=== PATIENT | male | born 1945 | race Caucasian/White ===

== ENCOUNTER → 2018-03-13 10:21 | Outpatient (CLI) | payer MEDICARE, OTHER, SELFPAY ==
[2018-03-13 12:35] LABS: Add Manual Diff / Slide Review NO; Basophils Percent Auto 0.5 % (0-2); Eosinophils Percent Auto 5.6 % (2-4); Hematocrit 39.1 % (41-53); Hemoglobin 13.2 g/dL (13.5-17.5); Lymphocytes Percent Auto 19.1 % (25-40); Mean Corpuscular HGB Conc 33.8 % (30-36); Mean Corpuscular Hemoglobin 32.8 PG (26-34); Mean Corpuscular Volume 96.9 fL (80-100); Monocytes Percent Auto 8.4 % (3-14); Neutrophils Absolute Auto 7600 /uL (3000-5900); Neutrophils Percent Auto 66.4 % (50-75); Platelet Count 274 X10^3/uL (150-400); Red Blood Cell Count 4.03 X10^6/uL (4.5-5.9); White Blood Cell Count 11.5 X10^3/uL (4.5-11.0)
[2018-03-13 13:34] LABS: Alanine Aminotransferase 24 IU/L (21-72); Albumin 3.8 g/dL (3.5-5.0); Albumin Globulin Ratio 1.4 (1.0-2.8); Alkaline Phosphatase 70 U/L (38-126); Aspartate Aminotransferase 24 IU/L (17-59); BUN Creatinine Ratio 11.4 (6-22); Bilirubin Total 0.6 mg/dL (0.2-1.3); Blood Urea Nitrogen 8 mg/dL (9-20); Calcium 9.2 mg/dL (8.4-10.2); Carbon Dioxide 25 mmol/L (22-32); Chloride 99 mmol/L (98-107); Estimated Glomerular Filt Rate > 60.0 mL/min (>60); Globulin 2.8 g/dL (1.7-4.1); Glucose 102 mg/dL (80-110); HEMOLYSIS < 15 (0-50); Potassium 4.5 mmol/L (3.4-5.1); Sodium 135 mmol/L (137-145); Total Protein 6.6 g/dL (6.3-8.2)
[2018-03-13 15:13] LABS: HIV 1 and 2 Antibody NEGATIVE (NEGATIVE)
[2018-03-15 13:45] LABS: Hepatitis B Surf Ab Qualitativ Nonreactive (Nonreactive)
[2018-03-15 13:52] LABS: Hepatitis B Core Antibody Nonreactive (Nonreactive)
== END ==
PROVIDERS: Visit Provider Dermatology
DX: Z51.81 Encounter for therapeutic drug level monitoring (principal); Z11.59 Encounter for screening for other viral diseases
CPT/HCPCS: 36415; 80053; 85025; 86317; 86480; 86703; 86704; 86706; 87522

== ENCOUNTER → 2018-03-14 12:53 | Outpatient (CLI) | payer MEDICARE, OTHER, SELFPAY ==
[2018-03-17 11:44] LABS: QuantiFERON TB Negative (Negative)
== END ==
PROVIDERS: Visit Provider Dermatology
DX: Z51.81 Encounter for therapeutic drug level monitoring (principal); Z11.59 Encounter for screening for other viral diseases
CPT/HCPCS: 86480

== ENCOUNTER → 2018-03-22 13:59 | Outpatient (CLI) | payer MEDICARE, OTHER, SELFPAY ==
[2018-03-22 15:36] LABS: Hepatitis B Surface Antigen NEGATIVE s/c (NEGATIVE)
[2018-03-22 15:53] LABS: Hep C Virus Ab w/Reflex Quant NEGATIVE s/c (NEGATIVE)
== END ==
PROVIDERS: Visit Provider Dermatology
DX: Z11.59 Encounter for screening for other viral diseases (principal); Z51.81 Encounter for therapeutic drug level monitoring
CPT/HCPCS: 36415; 86803; 87340

== ENCOUNTER → 2018-04-26 09:12 | Outpatient (CLI) | payer MEDICARE, OTHER, SELFPAY ==
[2018-04-26 10:00] LABS: Add Manual Diff / Slide Review NO; Basophils Percent Auto 1.1 % (0-2); Eosinophils Percent Auto 5.4 % (2-4); Hematocrit 38.9 % (41-53); Lymphocytes Percent Auto 36.3 % (25-40); Mean Corpuscular HGB Conc 33.6 % (30-36); Mean Corpuscular Hemoglobin 32.2 PG (26-34); Mean Corpuscular Volume 95.8 fL (80-100); Monocytes Percent Auto 9.7 % (3-14); Neutrophils Absolute Auto 2800 /uL (3000-5900); Neutrophils Percent Auto 47.5 % (50-75); Platelet Count 286 X10^3/uL (150-400); Red Blood Cell Count 4.06 X10^6/uL (4.5-5.9); Red Cell Distribution Width 14.3 % (11.6-14.8); White Blood Cell Count 5.9 X10^3/uL (4.5-11.0)
[2018-04-26 10:46] LABS: Alanine Aminotransferase 25 IU/L (21-72); Albumin 4.2 g/dL (3.5-5.0); Albumin Globulin Ratio 1.4 (1.0-2.8); Alkaline Phosphatase 81 U/L (38-126); Aspartate Aminotransferase 25 IU/L (17-59); Bilirubin Total 0.7 mg/dL (0.2-1.3); Blood Urea Nitrogen 9 mg/dL (9-20); Calcium 9.1 mg/dL (8.4-10.2); Carbon Dioxide 25 mmol/L (22-32); Chloride 98 mmol/L (98-107); Estimated Glomerular Filt Rate > 60.0 mL/min (>60); Globulin 2.9 g/dL (1.7-4.1); Glucose 99 mg/dL (80-110); HEMOLYSIS < 15 (0-50); Potassium 4.4 mmol/L (3.4-5.1); Sodium 134 mmol/L (137-145); Total Protein 7.1 g/dL (6.3-8.2)
== END ==
PROVIDERS: Visit Provider Dermatology
DX: Z51.81 Encounter for therapeutic drug level monitoring (principal)
CPT/HCPCS: 36415; 80053; 85025

== ENCOUNTER 2019-06-13 07:23 | Day surgery (SDC) | payer MEDICARE, OTHER, SELFPAY ==
[2019-06-13 07:42] VITALS: BP 139/75; PULSE 80; RESP 16; TEMP 36.5; O2SAT 97
[2019-06-13] MEDS: PROPARACAINE 0.5% OPHTH SOL 2 DROPS EYE-OP (07:50)
[2019-06-13] MEDS: CATARACT EYE COMPOUND (10 DROPS/SYRINGE) 3 DROPS EYE-OP (07:51)
--- NOTE | 2019-06-13 08:41 | PM.PREOP ---
Pre-operative Note Interval Note History & Physical reviewed/Exam performed by Physician: Yes Changes to H&P: No
[2019-06-13] MEDS: TETRACAINE 0.5% OPHTH DROPS 4 ML 2 DROPS EYE-OP (09:00)
[2019-06-13] MEDS: CHONDROIDTIN/SOD HYALURONATE 1.05 ML SYRINGE INTRAOCULA ×2 (09:13→09:48)
[2019-06-13] MEDS: BALANCED SALT IRRIG SOLN NO.2 15 ML 5 ML IRR ×2 (09:13→09:38)
[2019-06-13] MEDS: LIDOCAINE 2% INJ SDV 2 ML INJ (09:14)
[2019-06-13] MEDS: MOXIFLOXACIN INJ 5 MG/ML VIAL EYE-OP (09:15)
[2019-06-13] MEDS: PHENYLEPHRINE/LIDOCAINE VIAL (OR) 0.2 ML EYE-OP (09:15)
[2019-06-13] MEDS: BALANCED SALT IRRIG SOLN NO.2 500 ML, EPINEPHrine 1 MG IRR (09:16)
--- NOTE | 2019-06-13 10:01 | PM.OP.1 ---
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 The correct patient, surgical site and lens were confirmed. 0.5 % tetracaine drops were placed in the right eye. The patient was prepped and draped in the typical sterile manner. A lid speculum was placed in the eye. 2% lidocaine was placed on the eye. A paracentesis port was created with a side-port blade. 0.1 mL of 1% preservative free lidocaine with phenylephrine was injected into the anterior chamber. Viscoelastic was injected into the anterior chamber. A 2.6mm keratome was used to create a clear corneal temporal incision. Cystotome and Utrata forceps were used to create a continuous curvilinear capsulorrhexis. Although the capsulorrhexis was continuous and curvilinear it was noted to be large. Phacoemulsification was used to remove the lens. The capsular bag was inflated with viscoelastic. Because of the large capsulorrhexis the corneal incision was enlarged with a keratome and an [employer] CL1515+11.5D lens was inserted into the capsule. Viscoelastic was removed and the wound was sutured, and found to be leak free. The eye was assessed to be at normal physiologic pressure. 0.1mL Vigamox was injected into the anterior chamber. The lens was well centered and in the capsule. The lid speculum was removed and the patient left the operating room in excellent condition.
[2019-06-13 10:10] VITALS: BP 159/74; PULSE 71; RESP 15; TEMP 36.7; O2SAT 99
== END 2019-06-13 10:25 | disposition home or self-care (01) ==
PROVIDERS: Visit Provider Ophthalmology
PROC: (CPT 66984; principal; 2019-06-13 08:30)
DX: H25.11 Age-related nuclear cataract, right eye (principal); I10 Essential (primary) hypertension
CPT/HCPCS: 66984; J0171; J2250

== ENCOUNTER 2019-06-27 12:48 | Day surgery (SDC) | payer MEDICARE, OTHER, SELFPAY ==
[2019-06-27] MEDS: PROPARACAINE 0.5% OPHTH SOL 2 DROPS EYE-OP (13:10)
[2019-06-27] MEDS: CATARACT EYE COMPOUND (10 DROPS/SYRINGE) 3 DROPS EYE-OP (13:15)
[2019-06-27 13:18] VITALS: BP 131/72; PULSE 86; RESP 20; TEMP 36.4; O2SAT 100; BMI 26.2
--- NOTE | 2019-06-27 13:48 | PM.PREOP ---
Pre-operative Note Interval Note History & Physical reviewed/Exam performed by Physician: Yes Changes to H&P: No
[2019-06-27] MEDS: BALANCED SALT IRRIG SOLN NO.2 15 ML 5 ML IRR (14:09)
[2019-06-27] MEDS: LIDOCAINE 2% INJ SDV 2 ML INJ (14:09)
[2019-06-27] MEDS: CHONDROIDTIN/SOD HYALURONATE 1.05 ML SYRINGE INTRAOCULA (14:09)
[2019-06-27] MEDS: TETRACAINE 0.5% OPHTH DROPS 4 ML 2 DROPS EYE-OP (14:10)
[2019-06-27] MEDS: PHENYLEPHRINE/LIDOCAINE VIAL (OR) 0.2 ML EYE-OP (14:10)
[2019-06-27] MEDS: MOXIFLOXACIN INJ 5 MG/ML VIAL EYE-OP (14:10)
[2019-06-27] MEDS: BALANCED SALT IRRIG SOLN NO.2 500 ML, EPINEPHrine 1 MG IRR (14:11)
[2019-06-27] MEDS: TRYPAN BLUE 0.5 ML SYRINGE INJ (14:12)
--- NOTE | 2019-06-27 15:02 | PM.OP.1 ---
Procedure & Clinicians Procedure: Cataract extraction with intraocular lens implant, left Same procedure as scheduled: Yes Indications: Visually significant age related nuclear sclerosis, left Surgeon: Russ Mckeon Click Yes if Unassisted: Yes Anesthesia Type: MAC +/- Operative Notes Procedure in detail: The patient was brought to the operating suite. The correct patient, surgical site and lens were confirmed. 0.5 % tetracaine drops were placed in the left eye and the eye was marked with a reference marker. The patient was prepped and draped in the typical sterile manner. A lid speculum was placed in the eye. 2% lidocaine was placed on the eye. A paracentesis port was created with a side-port blade. 0.1 mL of 1% preservative free lidocaine with phenylephrine was injected into the anterior chamber. Viscoelastic was injected into the anterior chamber. A 2.6mm keratome was used to create a clear corneal temporal incision. Cystotome and Utrata forceps were used to create a continuous curvilinear capsulorrhexis. Balanced salt solution was used to hydrodissect the nucleus. Phacoemulsification was used to remove the lens. The capsular bag was inflated with viscoelastic. A [employer] ZCT 225 +11.5D lens was inserted into the capsule and rotated to 162 degrees. Viscoelastic was removed and the wound hydrated. The wound was sealed with ReSure and found to be leak free and the eye was assessed to be at normal physiologic pressure. 0.1mL Vigamox was injected into the anterior chamber. The lens was well positioned and confirmed at 162 degrees. The lid speculum was removed and the patient left the operating room in excellent condition. Complications: none Post-operative Condition: stable Disposition: same day surgery
[2019-06-27 15:10] VITALS: BP 147/73; PULSE 82; RESP 17; TEMP 36.7; O2SAT 100
== END 2019-06-27 15:24 | disposition home or self-care (01) ==
PROVIDERS: Visit Provider Ophthalmology
PROC: (CPT 66982; principal; 2019-06-27 14:00)
DX: H25.12 Age-related nuclear cataract, left eye (principal); I10 Essential (primary) hypertension
CPT/HCPCS: 66982; J0171; J2250; J3010; V2787